=== PATIENT | female | born 1995 | race Two or more races ===

== ENCOUNTER 2023-12-24 12:00 | Emergency (ER) | payer OTHER ==
[~2023-12-24] VITALS: Ht 165.1 cm; Wt 90.7 kg
[2023-12-24 13:09] LABS: HEMATOCRIT 35.1 % (36.0-45.00); MEAN CELL VOLUME 82.7 fL (80.00-100.00); MEAN CORPUSCULAR HEMOGLOBIN 28.3 pg (27.00-32.0); MEAN CORPUSCULAR HGB CONC 34.2 g/dl (32.0-36.0); PLATELET COUNT 300 K/uL (150-450); RED BLOOD COUNT 4.25 M/uL (4.00-6.00); RED CELL DISTRIBUTION WIDTH 13.8 % (11.5-14.5)
[2023-12-24 13:46] LABS: CALCIUM 8.5 mg/dL (8.5-10.1); CREATININE SERUM 0.53 mg/dL (0.55-1.02); GFR 135.45; POTASSIUM 3.57 mEq/L (3.5-5.1)
[2023-12-24 14:19] LABS: PH,URINE 5.5 (5.0-8.0); URINE APPEARANCE Clear; URINE BILIRRUBIN Negative (NEGATIVE); URINE BLOOD Small; URINE COLOR Yellow; URINE GLUCOSE Negative (NEGATIVE); URINE LEUKOCYTE Negative; URINE NITRATE Negative; URINE PROTEIN Negative (NEGATIVE); URINE UROBILINOGEN 0.2 E.U./dl
[2023-12-24 14:23] LABS: URINE BACTERIA 83.1 uL (0.0-1933); URINE EPITHELIAL CELLS 6.8 uL (0.0-38.8)
[2023-12-24 14:46] LABS: URINE RBC 1.8 uL (0.0-20.8); URINE WBC 1.6 uL (0.0-23.2)
== END 2023-12-24 15:17 | disposition home or self-care (01) ==
LOC: ER 12:00
PROVIDERS: General Practice
DX: O20.8 Other hemorrhage in early pregnancy (principal); Z3A.09 9 weeks gestation of pregnancy

== ENCOUNTER 2024-01-06 06:56 | Emergency (ER) | payer OTHER ==
[~2024-01-06] VITALS: Ht 165.1 cm; Wt 90.7 kg
[2024-01-06] MEDS ORDERED: FAMOTIDINE/PF 20 MG/2 ML VIAL IV PUSH STA (08:02)
[2024-01-06] MEDS ORDERED: ALBUTEROL SULFATE 3 ML/2.5 MG AMPUL.NEB IH STA (08:02)
[2024-01-06] MEDS ORDERED: PROMETHAZINE HCL 25 MG/ML AMPUL IM STA (08:03)
[2024-01-06] MEDS ORDERED: 0.9 % SODIUM CHLORIDE 1,000 ML IV ONE (08:15)
[2024-01-06 08:25] LABS: HEMATOCRIT 35.4 % (36.0-45.00); HEMOGLOBIN 12.1 g/dL (12.0-15.00); MEAN CELL VOLUME 82.7 fL (80.00-100.00); MEAN CORPUSCULAR HEMOGLOBIN 28.2 pg (27.00-32.0); MEAN CORPUSCULAR HGB CONC 34.1 g/dl (32.0-36.0); PLATELET COUNT 280 K/uL (150-450); RED BLOOD COUNT 4.28 M/uL (4.00-6.00); RED CELL DISTRIBUTION WIDTH 13.6 % (11.5-14.5)
[2024-01-06 09:17] LABS: ALBUMIN 3.1 gm/dL (3.4-5.0); BILIRUBIN TOTAL 0.34 mg/dL (0.3-1.2); CALCIUM 8.6 mg/dL (8.5-10.1); CREATININE SERUM 0.53 mg/dL (0.55-1.02); GFR 135.45; GLOBULINA 3.8 G/DL (2.4-3.5); POTASSIUM 3.71 mEq/L (3.5-5.1); TOTAL PROTEIN 6.9 gm/dL (6.4-8.2)
[2024-01-06] MEDS ORDERED: ALBUTEROL SULFATE 3 ML/2.5 MG AMPUL.NEB IH SCH (10:00)
[2024-01-06] MEDS ORDERED: MORPHINE SULFATE 4 MG/ML CARTRIDGE IV ONE (12:30)
[2024-01-06] MEDS ORDERED: TAMSULOSIN HCL 0.4 MG CAP PO ONE (12:30)
[2024-01-06] MEDS ORDERED: ZITHROMAX500 MG PO (13:49)
[2024-01-06] MEDS ORDERED: TUSSIN100 MG/51 PO (13:49)
== END 2024-01-06 14:36 | disposition home or self-care (01) ==
LOC: ER 06:56
PROVIDERS: General Practice
DX: R05.9 Cough, unspecified (principal); O21.9 Vomiting of pregnancy, unspecified; Z3A.09 9 weeks gestation of pregnancy; Z20.822 Contact with and (suspected) exposure to COVID-19; Z88.8 Allergy status to other drugs, medicaments and biological substances

== ENCOUNTER 2024-01-14 11:33 | Outpatient (CLI) | payer OTHER ==
[~2024-01-14 11:33] MED LIST: TUSSIN100 MG/51 PO; ZITHROMAX500 MG PO
== END 2024-01-14 11:34 | disposition home or self-care (01) ==
LOC: PRENATAL 11:33
PROVIDERS: ATTEND Obstetrics & Gynecology Maternal & Fetal Medicine
DX: O36.80X0 Pregnancy with inconclusive fetal viability, not applicable or unspecified (principal); Z36.82 Encounter for antenatal screening for nuchal translucency; Z3A.12 12 weeks gestation of pregnancy

== ENCOUNTER 2024-01-19 07:44 | Emergency (ER) | payer OTHER ==
[~2024-01-19] VITALS: Ht 165.1 cm; Wt 90.7 kg
[2024-01-19] MEDS ORDERED: METHYLPREDNISOLONE SOD SUCC 125 MG VIAL IV ONE (08:30)
[2024-01-19] MEDS ORDERED: LEVALBUTEROL HCL 1.25 MG/3 ML SOLUTION IH SCH (08:30)
[2024-01-19] MEDS ORDERED: HYDROCODONE/CHLORPHEN P-STIREX 5 ML ML PO ONE (08:30)
[2024-01-19] MEDS ORDERED: AZITHROMYCIN 500 MG TABLET PO ONE (08:30)
[2024-01-19 08:53] LABS: HEMATOCRIT 32.5 % (36.0-45.00); HEMOGLOBIN 11.3 g/dL (12.0-15.00); MEAN CELL VOLUME 82.3 fL (80.00-100.00); MEAN CORPUSCULAR HEMOGLOBIN 28.5 pg (27.00-32.0); MEAN CORPUSCULAR HGB CONC 34.6 g/dl (32.0-36.0); PLATELET COUNT 266 K/uL (150-450); RED BLOOD COUNT 3.96 M/uL (4.00-6.00); RED CELL DISTRIBUTION WIDTH 13.6 % (11.5-14.5)
[2024-01-19] MEDS ORDERED: XOPENEX CO1.25 MG/0. IH (10:39)
== END 2024-01-19 12:18 | disposition home or self-care (01) ==
LOC: ER 07:45
PROVIDERS: General Practice
DX: J06.9 Acute upper respiratory infection, unspecified (principal); R05.9 Cough, unspecified; Z88.8 Allergy status to other drugs, medicaments and biological substances

== ENCOUNTER → 2024-06-02 10:48 | Outpatient (CLI) | payer OTHER ==
[~2024-06-02 10:48] MED LIST changes: +XOPENEX CO1.25 MG/0. IH
== END | disposition home or self-care (01) ==
LOC: PRENATAL 10:48
PROVIDERS: ATTEND Obstetrics & Gynecology Maternal & Fetal Medicine
DX: O26.843 Uterine size-date discrepancy, third trimester (principal); O36.8130 Decreased fetal movements, third trimester, not applicable or unspecified; O99.891 Other specified diseases and conditions complicating pregnancy; Z3A.32 32 weeks gestation of pregnancy

== ENCOUNTER 2024-06-23 17:59 | Inpatient (IN) | payer OTHER ==
[~2024-06-23] VITALS: Ht 165.1 cm; Wt 94.8 kg
[2024-06-23] MEDS ORDERED: BETAMETHASONE ACETATE,SOD PHOS 30 MG/5 ML ML ONE (18:56)
[2024-06-23] MEDS ORDERED: BETAMETHASONE ACETATE,SOD PHOS 30 MG/5 ML ML IM ONE (19:00)
[2024-06-23 19:37] LABS: HEMATOCRIT 31.8 % (36.0-45.00); HEMOGLOBIN 10.9 g/dL (12.0-15.00); MEAN CELL VOLUME 82.5 fL (80.00-100.00); MEAN CORPUSCULAR HEMOGLOBIN 28.2 pg (27.00-32.0); MEAN CORPUSCULAR HGB CONC 34.2 g/dl (32.0-36.0); PLATELET COUNT 248 K/uL (150-450); RED BLOOD COUNT 3.85 M/uL (4.00-6.00); RED CELL DISTRIBUTION WIDTH 13.9 % (11.5-14.5)
[2024-06-23 19:41] LABS: PH,URINE 6.5 (5.0-8.0); URINE APPEARANCE Clear; URINE BILIRRUBIN Negative (NEGATIVE); URINE BLOOD Negative; URINE COLOR Yellow; URINE GLUCOSE Negative (NEGATIVE); URINE KETONE Negative (NEGATIVE); URINE LEUKOCYTE Trace; URINE NITRATE Negative; URINE PROTEIN Negative (NEGATIVE); URINE UROBILINOGEN 0.2 E.U./dl
[2024-06-23 19:42] LABS: URINE BACTERIA 941.1 uL (0.0-1933); URINE EPITHELIAL CELLS 39.1 uL (0.0-38.8); URINE WBC 31.9 uL (0.0-23.2)
[2024-06-23] MEDS ORDERED: RINGERS SOLUTION,LACTATED 1,000 ML IV SCH (20:00)
[2024-06-23 20:14] LABS: URINE RBC 1.8 uL (0.0-20.8)
[2024-06-23 20:15] LABS: INR < 0.93; PARTIAL THROMBOPLASTIN TIME 28.9 SECONDS (22.0-34.0)
[2024-06-23 20:43] LABS: ALBUMIN 2.7 gm/dL (3.4-5.0); BILIRUBIN TOTAL 0.11 mg/dL (0.3-1.2); CALCIUM 8.8 mg/dL (8.5-10.1); CREATININE SERUM 0.55 mg/dL (0.55-1.02); GFR 128.92; GLOBULINA 3.8 G/DL (2.4-3.5); POTASSIUM 3.9 mEq/L (3.5-5.1); TOTAL PROTEIN 6.5 gm/dL (6.4-8.2)
[2024-06-23] MEDS ORDERED: NIFEDIPINE20 MG PO (20:50)
[2024-06-24] MEDS ORDERED: CEFAZOLIN SODIUM 1,000 MG VIAL IV SCH (18:00)
[2024-06-24] MEDS ORDERED: BETAMETHASONE ACETATE,SOD PHOS 30 MG/5 ML ML IM NR (19:00)
[2024-06-24 19:03] LABS: URINE PROT QUANT 24HR 5.7 MG/DL
[2024-06-24 19:09] LABS: URINE PROT QUANT 24 HR 223.73 MG/24HR (42-225)
== END 2024-06-25 20:01 | disposition home or self-care (01) | DRG 833 ==
LOC: LDR 17:59
PROVIDERS: ADMIT Obstetrics & Gynecology Obstetrics; ATTEND Obstetrics & Gynecology Obstetrics
PROC: BY4FZZZ Ultrasonography of Third Trimester, Single Fetus (ICD-10-PCS; principal; 2024-06-23)
PROC: 4A1HXCZ Monitoring of Products of Conception, Cardiac Rate, External Approach (ICD-10-PCS; 2024-06-23)
DX: O13.3 Gestational [pregnancy-induced] hypertension without significant proteinuria, third trimester (principal); Z3A.35 35 weeks gestation of pregnancy; Z20.822 Contact with and (suspected) exposure to COVID-19

== ENCOUNTER 2024-07-08 00:47 | Inpatient (IN) | payer OTHER ==
[2024-07-07 23:15] VITALS: BP 125/81
[~2024-07-08] VITALS: Ht 165.1 cm; Wt 1.8 kg
[~2024-07-08 00:47] MED LIST changes: +NIFEDIPINE20 MG PO; +PRENATABS RX T1 EACH PO
[2024-07-08] MEDS ORDERED: CEFAZOLIN SODIUM 1,000 MG VIAL IV SCH (01:00)
[2024-07-08] MEDS ORDERED: RINGERS SOLUTION,LACTATED 1,000 ML IV SCH (01:00)
[2024-07-08 01:39] LABS: HEMATOCRIT 32.1 % (36.0-45.00); HEMOGLOBIN 11.2 g/dL (12.0-15.00); MEAN CELL VOLUME 81.1 fL (80.00-100.00); MEAN CORPUSCULAR HEMOGLOBIN 28.4 pg (27.00-32.0); PH,URINE 5.5 (5.0-8.0); PLATELET COUNT 276 K/uL (150-450); RED BLOOD COUNT 3.96 M/uL (4.00-6.00); URINE APPEARANCE Cloudy; URINE BILIRRUBIN Negative (NEGATIVE); URINE BLOOD Negative; URINE COLOR Yellow; URINE EPITHELIAL CELLS 127.2 uL (0.0-38.8); URINE GLUCOSE Negative (NEGATIVE); URINE KETONE Negative (NEGATIVE); URINE LEUKOCYTE Moderate; URINE NITRATE Negative; URINE PROTEIN 30 (NEGATIVE); URINE RBC 7.3 uL (0.0-20.8)
[2024-07-08 01:48] LABS: URINE BACTERIA > 9821.5 uL (0.0-1933); URINE CAST 1.22 uL (0.0-1.40)
[2024-07-08 02:06] LABS: ALBUMIN 2.7 gm/dL (3.4-5.0); BILIRUBIN TOTAL 0.14 mg/dL (0.3-1.2); CALCIUM 8.7 mg/dL (8.5-10.1); CREATININE SERUM 0.64 mg/dL (0.55-1.02); GFR 108.23; GLOBULINA 4.1 G/DL (2.4-3.5); POTASSIUM 4.15 mEq/L (3.5-5.1); TOTAL PROTEIN 6.8 gm/dL (6.4-8.2)
[2024-07-08 02:46] LABS: URINE CRYSTALS MODERATE /HPF
[2024-07-08 03:48] LABS: INR < 0.93; PARTIAL THROMBOPLASTIN TIME 30.7 SECONDS (22.0-34.0); PROTHROMBIN TIME 9.9 SECONDS (9.0-11.5)
[2024-07-08 04:24] VITALS: BP 116/85
[2024-07-08 06:34] VITALS: BP 125/87; O2SAT 97
[2024-07-08 12:00] VITALS: BP 122/83; O2SAT 97
[2024-07-08] MEDS ORDERED: ERYTHROMYCIN BASE OPHT 1GM EACH TUBE OP ONE (14:14)
[2024-07-08] MEDS ORDERED: MORPHINE SULFATE 4 MG/ML VIAL IV ONE ×2 (17:20→18:15)
[2024-07-08] MEDS ORDERED: OXYTOCIN 10 UNITS/ML VIAL ONE (18:38)
[2024-07-08] MEDS ORDERED: OXYTOCIN 20 UNITS/1000ML RL PIGGYBAG IV ONE (18:45)
[2024-07-08 19:31] VITALS: BP 143/94
[2024-07-09] VITALS: BP 136/89
[2024-07-09] MEDS ORDERED: MORPHINE SULFATE 4 MG/ML CARTRIDGE IV PRN (00:45)
[2024-07-09] MEDS ORDERED: IBUprofen 800 MG TABLET PO SCH ×2 (01:00→09:00)
[2024-07-09 04:30] VITALS: BP 140/80
[2024-07-09 09:13] VITALS: BP 130/90
[2024-07-09 16:44] VITALS: BP 144/89
[2024-07-09 20:17] VITALS: BP 127/87
[2024-07-10] VITALS: BP 133/90
[2024-07-10 07:59] VITALS: BP 129/87
[2024-07-10 18:04] VITALS: BP 120/81
[2024-07-11] VITALS: BP 121/80
[2024-07-11 07:42] VITALS: BP 135/86
[2024-07-11 13:25] VITALS: BP 141/87
[2024-07-11 14:35] VITALS: BP 143/97
== END 2024-07-11 16:08 | disposition home or self-care (01) | DRG 788 ==
LOC: LDR 00:47 → OB/GYN 16:13
PROVIDERS: ADMIT Obstetrics & Gynecology Obstetrics; ATTEND Obstetrics & Gynecology Obstetrics
PROC: 4A1HXCZ Monitoring of Products of Conception, Cardiac Rate, External Approach (ICD-10-PCS; 2024-07-08)
PROC: 10D00Z1 Extraction of Products of Conception, Low, Open Approach (ICD-10-PCS; principal; 2024-07-08 14:00)
DX: O14.04 Mild to moderate pre-eclampsia, complicating childbirth (principal); O36.5930 Maternal care for other known or suspected poor fetal growth, third trimester, not applicable or unspecified; Z3A.37 37 weeks gestation of pregnancy; Z37.0 Single live birth; Z20.822 Contact with and (suspected) exposure to COVID-19